=== PATIENT | male | born 1990 | race Caucasian/White ===

== ENCOUNTER 2018-06-07 02:28 | Emergency (ER) | payer MEDICAID ==
[~2018-06-07] VITALS: Ht 177.8 cm; Wt 121.6 kg
[2018-06-07 02:35] VITALS: Ht 177.8 cm; Wt 121.6 kg
[2018-06-07 03:33] LABS: CALCIUM 8.6 mg/dL (8.5-10.1); CARBON DIOXIDE 27.4 mmol/L (21-32); CHLORIDE SERUM 104 mmol/L (98-107); CREATININE SERUM 0.8 mg/dL (0.7-1.3); GFR1 > 60 mL/min; GLUCOSE SERUM 95 mg/dL (74-106); POTASSIUM SERUM 3.7 mmol/L (3.5-5.1); SODIUM SERUM 138 mmol/L (136-145)
[2018-06-07 03:36] LABS: BASOPHIL % 0.5 % (0-2); PLATELET COUNT 234 x10^3mcL (130-400); RED CELL DISTRIBUTION WIDTH 13.1 % (11.5-14.5)
[2018-06-07 03:38] LABS: ALBUMIN 3.7 g/dL (3.4-5.0); ALKALINE PHOSPHATASE 79 U/L (46-116); ALT/SGPT 26 U/L (16-63); AST/SGOT 15 U/L (15-37); BILIRUBIN TOTAL 0.2 mg/dL (0.20-1.00); LIPASE 98 IU/L (73-393); TOTAL PROTEIN, SERUM 7.8 g/dL (6.4-8.2)
[2018-06-07 03:46] LABS: UA SPECIFIC GRAVITY 1.025 (1.005-1.035); microscopic required? YES; urine erythrocyte TRACE (NEGATIVE)
[2018-06-07 05:43] VITALS: BP 125/77
== END 2018-06-07 05:43 | disposition home or self-care (01) ==
LOC: ED 02:28
PROVIDERS: Emergency Medicine
DX: R10.11 Right upper quadrant pain (principal); R16.0 Hepatomegaly, not elsewhere classified; L29.9 Pruritus, unspecified; J02.9 Acute pharyngitis, unspecified; F41.9 Anxiety disorder, unspecified
CPT/HCPCS: 36415; Q0092

== ENCOUNTER 2018-08-13 22:07 | Emergency (ER) | payer SELFPAY ==
[~2018-08-13] VITALS: Ht 177.8 cm; Wt 124.7 kg
[2018-08-13 22:26] VITALS: Ht 177.8 cm; Wt 124.7 kg
[2018-08-13 23:17] VITALS: BP 147/90
== END 2018-08-13 23:17 | disposition home or self-care (01) ==
LOC: ED 22:07
DX: L30.9 Dermatitis, unspecified (principal); K60.2 Anal fissure, unspecified; F41.9 Anxiety disorder, unspecified

== ENCOUNTER 2019-08-03 03:12 | Emergency (ER) | payer MEDICAID ==
[~2019-08-03] VITALS: Ht 175.3 cm; Wt 141.1 kg
[2019-08-03 04:00] LABS: CALCIUM 8.2 mg/dL (8.5-10.1); CARBON DIOXIDE 31.5 mmol/L (21-32); CHLORIDE SERUM 103 mmol/L (98-107); CREATININE SERUM 0.9 mg/dL (0.7-1.3); GFR1 > 60 mL/min; GLUCOSE SERUM 117 mg/dL (74-106); SODIUM SERUM 139 mmol/L (136-145)
[2019-08-03 04:05] LABS: AMPHETAMINE QUAL UR NONE DETECTED (See below)
[2019-08-03 04:09] LABS: ALBUMIN 3.5 g/dL (3.4-5.0); ALKALINE PHOSPHATASE 99 U/L (46-116); ALT/SGPT 51 U/L (16-63); AMYLASE 41 U/L (25-115); AST/SGOT 18 U/L (15-37); BILIRUBIN TOTAL 0.2 mg/dL (0.20-1.00); LIPASE 113 IU/L (73-393); TOTAL PROTEIN, SERUM 7.9 g/dL (6.4-8.2)
[2019-08-03 04:12] LABS: BASOPHIL % 0.4 % (0-2); PLATELET COUNT 274 x10^3mcL (130-400)
[2019-08-03 04:15] LABS: RED CELL DISTRIBUTION WIDTH 14.7 % (11.5-14.5)
[2019-08-03 05:52] VITALS: BP 119/78
== END 2019-08-03 05:52 | disposition home or self-care (01) ==
LOC: ED 03:12
PROVIDERS: Specialist
DX: K76.0 Fatty (change of) liver, not elsewhere classified (principal); F41.9 Anxiety disorder, unspecified
CPT/HCPCS: 36415; G0480; J1885; Q0092